=== PATIENT | female | born 1985 | race Caucasian/White ===

== ENCOUNTER 2021-01-30 12:51 | Emergency (ER) | payer OTHER ==
[~2021-01-30] VITALS: Ht 157.5 cm; Wt 74.8 kg
[2021-01-30 13:01] VITALS: BP 132/81
[2021-01-30] MEDS ORDERED: NORCO5 PO (13:22)
[2021-01-30] MEDS ORDERED: PENICILLIN VK500 M1 PO (13:22)
== END 2021-01-30 13:46 | disposition home or self-care (01) ==
LOC: ER 12:51
DX: K08.89 Other specified disorders of teeth and supporting structures (principal); R51.9 Headache, unspecified